=== PATIENT | female | born 1970 | race African-American/Black ===

== ENCOUNTER 2021-03-30 18:56 | Observation (INO) ==
[2021-03-30] MEDS ORDERED: NITROGLYCERIN 2% OINT 1 INCH/GM PACK TOP STA (20:05)
[2021-03-30] MEDS ORDERED: ONDANSETRON 4 MG/2 ML VIAL IV STA (20:05)
[2021-03-30] MEDS ORDERED: HYDROmorphone 2 MG/1 ML VIAL IV STA (20:05)
[2021-03-30] MEDS ORDERED: ALUM/MAG/SIMETH/LIDO VISC 1:1 30 ML BOTTLE PO STA (20:05)
[2021-03-30 20:25] LABS: Basophils % 0.4 % (0.0-0.8); Eosinophils # 0.2 10*3/uL (0.0-0.87); Eosinophils % 3.5 % (0.00-10.9); Hematocrit 35.7 VOL% (35.7-47.0); Hemoglobin 11.7 GM/DL (12.0-16.0); Immature Granulocytes % 0.2 %; Immature Granulocytes Absolute 0.01 #; Lymphocytes # 1.1 10*3/uL (1.4-4.0); Lymphocytes % 24.6 % (21.3-54.2); Mean Corpuscular HGB Conc 32.8 GM/DL (32-36); Mean Corpuscular Volume 86.7 FL (87-102); Mean Platelet Volume 10.9 FL (9.6-12.0); Monocytes % 9.2 % (1.7-12.7); Neutrophils % 62.1 % (38.7-73.9); Platelet Count 179 T/CUMM (130-400); Red Blood Count 4.12 MC/CUMM (3.8-5.5); Red Cell Distribution Width 13.7 % (9.3-17.3); White Blood Count 4.6 T/CUMM (4-12)
[2021-03-30 20:41] LABS: Albumin 3.2 G/DL (3.4-5.0); Bilirubin,Total 0.4 MG/DL (0.20-1.00); Calcium 9.1 MG/DL (8.5-10.1); Osmolality,Calculated 269.1 MOS/KG (273-304); Potassium 4.5 MMOL/L (3.5-5.1); Total Protein 6.8 G/DL (6.4-8.2)
[2021-03-30 20:59] LABS: PT Patient Result 10.9 SECS (10.5-12.0)
[2021-03-30] MEDS ORDERED: ENOXAPARIN 100 MG/ML SYRINGE SUBCUT STA (22:38)
[2021-03-30] MEDS ORDERED: ZALEPLON 5 MG CAPSULE PO PRN (22:46)
[2021-03-30] MEDS ORDERED: hydrALAZINE 20 MG/1 ML VIAL IV PRN (22:46)
[2021-03-30] MEDS ORDERED: diphenhydrAMINE CAP 25 MG CAPSULE PO PRN (22:46)
[2021-03-30] MEDS ORDERED: DEXTROSE 50% 25 GM/50 ML VIAL IV PRN (22:46)
[2021-03-30] MEDS ORDERED: guaiFENesin/DM ER 600-30 MG TABLET PO PRN (22:46)
[2021-03-30] MEDS ORDERED: ACETAMINOPHEN 325 MG TABLET PO PRN (22:46)
[2021-03-30] MEDS ORDERED: NICOTINE 21 MG/24 HR PATCH TRANSDERM PRN (22:46)
[2021-03-30] MEDS ORDERED: GLUCAGON 1 MG VIAL IM PRN ×2 (22:46)
[2021-03-30] MEDS ORDERED: DEXTROSE 50% 25 GM/50 ML SYRINGE IV PRN (22:46)
[2021-03-31] MEDS: HYDROmorphone 2 MG/1 ML VIAL IV PRN ×6 (01:01→23:00)
[2021-03-31 03:33] LABS: Basophils % 0.6 % (0.0-0.8); Eosinophils # 0.2 10*3/uL (0.0-0.87); Eosinophils % 5.2 % (0.00-10.9); Hematocrit 34.6 VOL% (35.7-47.0); Hemoglobin 11.2 GM/DL (12.0-16.0); Immature Granulocytes % 0.3 %; Immature Granulocytes Absolute 0.01 #; Lymphocytes # 1.4 10*3/uL (1.4-4.0); Lymphocytes % 37.2 % (21.3-54.2); Mean Corpuscular HGB Conc 32.4 GM/DL (32-36); Mean Corpuscular Volume 87.4 FL (87-102); Mean Platelet Volume 11.3 FL (9.6-12.0); Monocytes % 10.5 % (1.7-12.7); Neutrophils % 46.2 % (38.7-73.9); Platelet Count 176 T/CUMM (130-400); Red Blood Count 3.96 MC/CUMM (3.8-5.5); Red Cell Distribution Width 13.9 % (9.3-17.3); White Blood Count 3.6 T/CUMM (4-12)
[2021-03-31 03:49] LABS: Risk Ratio 4.08
[2021-03-31 08:04] LABS: Free T4 (Free Thyroxine) 0.96 NG/DL (0.76-1.46); Thyroid Stimulating Hormone 0.331 uIU/ml (0.358-3.74)
[2021-03-31] MEDS ORDERED: ALUM/MAG/SIMETH/LIDO VISC 1:1 30 ML BOTTLE PO ONE (08:17)
[2021-03-31] MEDS: BISACODYL 5 MG TABLET PO SCH (08:32)
[2021-03-31] MEDS: INSULIN LISPRO 100 UNIT/ML SUBCUT SCH ×4 (08:32→22:43)
[2021-03-31] MEDS ORDERED: PANTOPRAZOLE 40 MG TABLET PO SCH (09:00)
[2021-03-31] MEDS: ONDANSETRON 4 MG/2 ML VIAL IV PRN ×4 (09:19→23:02)
[2021-03-31] MEDS: PANTOPRAZOLE 40 MG TABLET PO SCH ×2 (09:44→21:35)
[2021-03-31] MEDS: ALUM/MAG/SIMETH/LIDO VISC 1:1 30 ML BOTTLE PO PRN (14:48)
[2021-03-31] MEDS: PHENYTOIN ER 100 MG CAPSULE PO SCH (21:35)
[2021-03-31] MEDS: oxyCODONE/ACETAMINOPHEN 5-325 MG TABLET PO PRN (21:38)
[2021-04-01] MEDS: ONDANSETRON 4 MG/2 ML VIAL IV PRN ×5 (02:52→22:17)
[2021-04-01] MEDS: HYDROmorphone 2 MG/1 ML VIAL IV PRN ×4 (02:52→19:56)
[2021-04-01] MEDS: oxyCODONE/ACETAMINOPHEN 5-325 MG TABLET PO PRN ×3 (03:42→16:55)
[2021-04-01] MEDS: INSULIN LISPRO 100 UNIT/ML SUBCUT SCH ×4 (08:30→21:45)
[2021-04-01] MEDS: PHENYTOIN ER 100 MG CAPSULE PO SCH ×2 (09:09→20:00)
[2021-04-01] MEDS: PANTOPRAZOLE 40 MG TABLET PO SCH ×2 (09:09→20:00)
[2021-04-01] MEDS: BISACODYL 5 MG TABLET PO SCH (10:01)
[2021-04-01] MEDS ORDERED: ALUM/MAG/SIMETH/LIDO VISC 1:1 30 ML BOTTLE PO ONE (12:35)
[2021-04-01] MEDS ORDERED: traMADol 50 MG TABLET PO PRN (13:23)
[2021-04-01] MEDS: PREGABALIN 100 MG CAPSULE PO SCH ×2 (15:03→20:00)
[2021-04-02] MEDS: oxyCODONE/ACETAMINOPHEN 5-325 MG TABLET PO PRN ×2 (02:09→08:35)
[2021-04-02] MEDS: ONDANSETRON 4 MG/2 ML VIAL IV PRN ×3 (02:09→10:47)
[2021-04-02] MEDS: HYDROmorphone 2 MG/1 ML VIAL IV PRN ×2 (05:41→12:22)
[2021-04-02] MEDS: INSULIN LISPRO 100 UNIT/ML SUBCUT SCH ×2 (08:19→12:39)
[2021-04-02] MEDS: PREGABALIN 100 MG CAPSULE PO SCH (08:33)
[2021-04-02] MEDS: PANTOPRAZOLE 40 MG TABLET PO SCH (08:33)
[2021-04-02] MEDS: PHENYTOIN ER 100 MG CAPSULE PO SCH (08:33)
[2021-04-02] MEDS: BISACODYL 5 MG TABLET PO SCH (08:38)
[2021-04-02] MEDS: ALUM/MAG/SIMETH/LIDO VISC 1:1 30 ML BOTTLE PO PRN (12:15)
[2021-04-02 13:53] VITALS: BP 105/61
== END 2021-04-02 13:35 | disposition home or self-care (01) ==
LOC: N.2E 18:56 → N.ED 18:56 → SUATTDRO 22:46 → N.2E 03-31 07:20
PROVIDERS: ADMIT Internal Medicine; ATTEND Internal Medicine